=== PATIENT | female | born 1995 | race Caucasian/White ===

== ENCOUNTER 2018-01-06 20:42 | Emergency (ER) | payer OTHER, BC ==
[2018-01-06] MEDS ORDERED: GI COCKTAIL 45 ML (Maalox/Lidocaine) PO ONE (21:14)
--- NOTE | 2018-01-06 21:14 | ERPHSYRPT ---
- History of Present Illness Time Seen by Provider: 01/06/18 21:11 Historian: patient Exam Limitations: no limitations Patient Subjective Stated Complaint: stomach pains and bloating feels awful Triage Nursing Assessment: pt alert and orientedx3, , lungs sounds clear, ambulates by self, gait is steady, pusles equal bialteral radius, bowel sounds present x4, abdomen tender to palpation. skin warm dry and itnact Physician History: The patient is a 22-year-old female complaining that for the past 1-1/2 weeks she has pain in her left upper abdomen after eating spicy foods. She has some nausea but has not vomited. She denies diarrhea. She has not tried any over- the-counter medicines like Maalox. She drinks coffee several times a day. She' s had no abdominal trauma or surgeries. She takes no medicines except a control pill orally. For the past for 5 months she has not had any menstrual periods and she is sexually active. Timing/Duration: week(s) (03/27), intermittent Activities at Onset: other (eating) Quality: aching, stabbing Abdominal Pain Onset Location: LUQ Pain Radiation: no radiation Severity of Pain-Max: moderate Severity of Pain-Current: mild Modifying Factors: Improves With: eating Associated Symptoms: nausea Previous symptoms: no prior history Allergies/Adverse Reactions: No Known Drug Allergies Allergy (Verified 01/06/18 21:48) Hx Tetanus, Diphtheria Vaccination/Date Given: Yes Hx Influenza Vaccination/Date Given: No Hx Pneumococcal Vaccination/Date Given: No Immunizations Up to Date: Yes - Review of Systems Constitutional: No Fever, No Chills Eyes: No Symptoms Ears, Nose, & Throat: No Symptoms Respiratory: No Cough, No Dyspnea Cardiac: No Chest Pain, No Edema, No Syncope Abdominal/Gastrointestinal: Abdominal Pain, Nausea Genitourinary Symptoms: No Dysuria Musculoskeletal: No Back Pain, No Neck Pain Skin: No Rash Neurological: No Dizziness, No Focal Weakness, No Sensory Changes Psychological: No Symptoms Endocrine: No Symptoms Hematologic/Lymphatic: No Symptoms Immunological/Allergic: No Symptoms All Other Systems: Reviewed and Negative - Past Medical History Pertinent Past Medical History: No - Past Surgical History Past Surgical History: Yes - Social History Smoking Status: Current every day smoker Drug Use: none Patient Lives Alone: Yes - Female History Hx Now: (unknown) - Nursing Vital Signs Nursing Vital Signs: Initial Vital Signs Temperature 98.6 F 01/06/18 20:43 Pulse Rate 79 01/06/18 20:43 Respiratory Rate 18 01/06/18 20:43 Blood Pressure 123/61 01/06/18 20:43 O2 Sat by Pulse Oximetry 99 01/06/18 20:43 Pain Scale Pain Intensity 1 - Physical Exam General Appearance: no apparent distress, alert Eye Exam: PERRL/EOMI, eyes nml inspection Ears, Nose, Throat Exam: normal ENT inspection, pharynx normal, moist mucous membranes Neck Exam: normal inspection, non-tender, supple, full range of motion Respiratory Exam: normal breath sounds, lungs clear, No respiratory distress Cardiovascular Exam: regular rate/rhythm, normal heart sounds Gastrointestinal/Abdomen Exam: tenderness (LUQ) Pelvic Exam: not done Rectal Exam: not done Back Exam: normal inspection, normal range of motion, No CVA tenderness, No vertebral tenderness Extremity Exam: normal inspection, normal range of motion, pelvis stable Neurologic Exam: alert, oriented x 3, cooperative, normal mood/affect, nml cerebellar function, sensation nml, No motor deficits Skin Exam: normal color, warm, dry SpO2 Interpretation: normal SpO2: 99 Oxygen Delivery: Room Air Ordered Tests: Active Orders 24 hr Category Date Time Status CBC W DIFF Stat Lab 01/06/18 21:35 Completed CMP Stat Lab 01/06/18 21:35 Completed HCG QUALITATIVE,SERUM Stat Lab 01/06/18 21:35 Completed LIPASE Stat Lab 01/06/18 21:35 Completed UA W/RFX UR CULTURE Stat Lab 01/06/18 21:35 Completed Medication Summary Discontinued Medications Generic Name Dose Route Start Last Admin Trade Name Daydayq PRN Reason Stop Dose Admin Al Hydrox/Mg Hydrox/Simethicone Confirm 01/06/18 21:18 Maalox Es 30 Ml Unit Dose Administered 01/06/18 21:19 Dose 30 ml .ROUTE .STK-MED ONE Lidocaine HCl Confirm 01/06/18 21:18 Xylocaine Hcl Viscous * Administered 01/06/18 21:19 Dose 15 ml .ROUTE .STK-MED ONE Magnesium Hydroxide 45 ml 01/06/18 21:14 01/06/18 21:19 Gi Cocktail 45 Ml (Maalox/Lidocaine) PO 01/06/18 21:15 45 ml STAT ONE Administration Lab/Rad Data: Laboratory Result Diagrams 01/06/18 21:35 01/06/18 21:35 Laboratory Results 01/06/18 01/06/18 01/06/18 Range/Units 21:35 21:35 21:35 WBC (4.0-10.5) K/mm3 RBC (4.1-5.4) M/mm3 Hgb (12.0-16.0) gm/dl Hct (35-47) % MCV (78-100) fl MCH (26-32) pg MCHC (32-36) g/dl RDW (11.5-14.0) % Plt Count (150-450) K/mm3 MPV (6-9.5) fl Gran % (36.0-66.0) % Eos # (Auto) (0-0.5) Absolute Lymphs (auto) (1.0-4.6) Absolute Monos (auto) (0.0-1.3) Lymphocytes % (24.0-44.0) % Monocytes % (0.0-12.0) % Eosinophils % (0.00-5.0) % Basophils % (0.0-0.4) % Absolute Granulocytes (1.4-6.9) Basophils # (0-0.4) Sodium 140 (137-145) mmol/L Potassium 3.5 (3.5-5.1) mmol/L Chloride 104 (98-107) mmol/L Carbon Dioxide 29 (22-30) mmol/L Anion Gap 10.6 (5-15) MEQ/L BUN 20 H (7-17) mg/dL Creatinine 0.57 (0.52-1.04) mg/dL Estimated GFR > 60.0 ML/MIN Glucose 95 (74-106) mg/dL Calcium 9.0 (8.4-10.2) mg/dL Total Bilirubin 0.20 (0.2-1.3) mg/dL AST 22 (14-36) U/L ALT 20 (0-35) U/L Alkaline Phosphatase 63 (38-126) U/L Serum Total Protein 6.7 (6.3-8.2) g/dL Albumin 4.1 (3.5-5.0) g/dL Lipase 122 (23-300) U/L Serum , Qual NEGATIVE (Negative) Urine Color YELLOW (YELLOW) Urine Appearance CLEAR (CLEAR) Urine pH 5.0 (5-6) Ur Specific [place] 1.021 (1.005-1.025) Urine Protein NEGATIVE (Negative) Urine Ketones NEGATIVE (NEGATIVE) Urine Blood NEGATIVE (0-5) Ron/ul Urine Nitrite NEGATIVE (NEGATIVE) Urine Bilirubin NEGATIVE (NEGATIVE) Urine Urobilinogen NEGATIVE (0-1) mg/dL Ur Leukocyte Esterase NEGATIVE (NEGATIVE) Urine WBC (Auto) 3-5 (0-5) /HPF U Epithel Cells (Auto) RARE (FEW) /HPF Urine Mucus (Auto) SLIGHT (NEGATIVE) /HPF Urine Culture Reflexed NO (NO) Urine Glucose NEGATIVE (NEGATIVE) mg/dL 01/06/18 Range/Units 21:35 WBC 9.9 (4.0-10.5) K/mm3 RBC 4.31 (4.1-5.4) M/mm3 Hgb 13.5 (12.0-16.0) gm/dl Hct 38.5 (35-47) % MCV 89.3 (78-100) fl MCH 31.3 (26-32) pg MCHC 35.1 (32-36) g/dl RDW 13.1 (11.5-14.0) % Plt Count 208 (150-450) K/mm3 MPV 10.5 H (6-9.5) fl Gran % 53.9 (36.0-66.0) % Eos # (Auto) 0.26 (0-0.5) Absolute Lymphs (auto) 3.62 (1.0-4.6) Absolute Monos (auto) 0.66 (0.0-1.3) Lymphocytes % 36.5 (24.0-44.0) % Monocytes % 6.7 (0.0-12.0) % Eosinophils % 2.6 (0.00-5.0) % Basophils % 0.3 (0.0-0.4) % Absolute Granulocytes 5.34 (1.4-6.9) Basophils # 0.03 (0-0.4) Sodium (137-145) mmol/L Potassium (3.5-5.1) mmol/L Chloride (98-107) mmol/L Carbon Dioxide (22-30) mmol/L Anion Gap (5-15) MEQ/L BUN (7-17) mg/dL Creatinine (0.52-1.04) mg/dL Estimated GFR ML/MIN Glucose (74-106) mg/dL Calcium (8.4-10.2) mg/dL Total Bilirubin (0.2-1.3) mg/dL AST (14-36) U/L ALT (0-35) U/L Alkaline Phosphatase (38-126) U/L Serum Total Protein (6.3-8.2) g/dL Albumin (3.5-5.0) g/dL Lipase (23-300) U/L Serum , Qual (Negative) Urine Color (YELLOW) Urine Appearance (CLEAR) Urine pH (5-6) Ur Specific [place] (1.005-1.025) Urine Protein (Negative) Urine Ketones (NEGATIVE) Urine Blood (0-5) Ron/ul Urine Nitrite (NEGATIVE) Urine Bilirubin (NEGATIVE) Urine Urobilinogen (0-1) mg/dL Ur Leukocyte Esterase (NEGATIVE) Urine WBC (Auto) (0-5) /HPF U Epithel Cells (Auto) (FEW) /HPF Urine Mucus (Auto) (NEGATIVE) /HPF Urine Culture Reflexed (NO) Urine Glucose (NEGATIVE) mg/dL - Progress Progress: improved Progress Note: 01/06/18 22:14 Pt improved with GI Cocktail. Counseled pt/family regarding: lab results, diagnosis, need for follow-up - Departure Time of Disposition: 22:15 (the area) Departure Disposition: Home Clinical Impression: Gastritis Condition: Stable Critical Care Time: No Referrals: OLIVIA MILLAN MD [Primary Care Provider] - Additional Instructions: You have gastritis. You were given a GI cocktail in the ER. You may take Maalox as often as needed. Also take omeprazole 20 mg daily. Avoid coffee and spicy foods until healed. Follow-up with your primary medical doctor next week. Prescriptions: Omeprazole 20 mg PO DAILY #14 capsule.
[2018-01-06] MEDS ORDERED: MAALOX ES 30 ML UNIT DOSE ONE (21:18)
[2018-01-06] MEDS ORDERED: XYLOCAINE HCl Viscous ONE (21:18)
[2018-01-06 21:41] LABS: BASOPHIL % 0.3 % (0.0-0.4); Basophil (Absolute #) 0.03 (0-0.4); Eosinophil % 2.6 % (0.00-5.0); Eosinophil (Absolute #) 0.26 (0-0.5); Granulocyte Absolute (ANC) 5.34 (1.4-6.9); Granulocytes % 53.9 % (36.0-66.0); Hematocrit 38.5 % (35-47); Hemoglobin 13.5 gm/dl (12.0-16.0); Lymphocyte (Absolute #) 3.62 (1.0-4.6); Lymphocytes % 36.5 % (24.0-44.0); Mean Cell Volume 89.3 fl (78-100); Mean Corpuscular Hemoglobin 31.3 pg (26-32); Mean Corpuscular Hgb Concent. 35.1 g/dl (32-36); Mean Platelet Volume 10.5 fl (6-9.5); Monocyte (Absolute #) 0.66 (0.0-1.3); Monocytes % 6.7 % (0.0-12.0); Platelet Count 208 K/mm3 (150-450); Red Blood Count 4.31 M/mm3 (4.1-5.4); Red Cell Distribution Width 13.1 % (11.5-14.0); White Blood Count 9.9 K/mm3 (4.0-10.5)
[2018-01-06 21:49] VITALS: BP 100/50
[2018-01-06 21:52] VITALS: PULSE 86
[2018-01-06 21:53] LABS: Appearance CLEAR (CLEAR); Bilirubin NEGATIVE (NEGATIVE); Blood NEGATIVE Ery/ul (0-5); Glucose NEGATIVE (NEGATIVE); Ketones NEGATIVE (NEGATIVE); Leukocyte Esterase NEGATIVE (NEGATIVE); Nitrite NEGATIVE (NEGATIVE); Protein,Urine Dip NEGATIVE (Negative); Specific Gravity 1.021 (1.005-1.025); Urobilinogen NEGATIVE mg/dL (0-1)
[2018-01-06 21:55] LABS: ALBUMIN 4.1 g/dL (3.5-5.0); ALKALINE PHOSPHATASE 63 U/L (38-126); ANION GAP 10.6 MEQ/L (5-15); BLOOD UREA NITROGEN 20 mg/dL (7-17); CHLORIDE 104 mmol/L (98-107); Carbon Dioxide 29 mmol/L (22-30); Creatinine 1 0.57 mg/dL (0.52-1.04); Glucose 95 mg/dL (74-106); LIPASE 122 U/L (23-300); Potassium 3.5 mmol/L (3.5-5.1); SGOT/AST 22 U/L (14-36); SGPT/ALT 20 U/L (0-35); SODIUM 140 mmol/L (137-145); Total Protein 6.7 g/dL (6.3-8.2)
[2018-01-06 22:18] VITALS: O2SAT 99
== END 2018-01-06 22:35 | disposition home or self-care (01) ==
LOC: ED 20:42
DX: K29.70 Gastritis, unspecified, without bleeding (principal); R10.12 Left upper quadrant pain; R11.0 Nausea
CPT/HCPCS: 36415; 80053; 81001; 83690; 84703; 85025; 96372; 99283; A9270-GY

== ENCOUNTER 2020-10-29 13:32 | Observation (INO) | payer OTHER ==
[2020-10-29 14:02] VITALS: BP 113/69; PULSE 95
== END 2020-10-29 14:20 | disposition home or self-care (01) ==
LOC: OB 13:32
PROVIDERS: ADMIT Family Medicine; ATTEND Family Medicine
DX: Z34.83 Encounter for supervision of other normal pregnancy, third trimester (principal); Z3A.39 39 weeks gestation of pregnancy
CPT/HCPCS: G0378

== ENCOUNTER 2020-11-02 10:14 | Inpatient (IN) | payer OTHER ==
[2020-11-02] MEDS ORDERED: Ephedrine Sulfate 50 MG/ML IV PRN (20:00)
[2020-11-02] MEDS ORDERED: Zofran 4 MG/2 ML VIAL IV PRN (20:00)
[2020-11-02] MEDS ORDERED: Lactated Ringers 1,000 ML IV SCH (20:00)
[2020-11-02] MEDS ORDERED: XYLOCAINE 1% HCL 20 ML MDV IJ PRN (20:00)
[2020-11-02] MEDS ORDERED: PITOCIN 30 UNITS/ LR 500 ML 30 UNITS/500 ML IV.SOLN. IV SCH (20:00)
[2020-11-02] MEDS ORDERED: BRETHINE 1 MG/ML SQ PRN (20:00)
[2020-11-02] MEDS ORDERED: Lactated Ringers 1,000 ML IV ONE (20:00)
[2020-11-02] MEDS ORDERED: OB EPIDURAL NAROPIN/SUFENTANIL IN NACL EPIDURAL PRN (20:00)
[2020-11-02 22:13] LABS: Hematocrit 36.8 % (35-47); Hemoglobin 12.5 gm/dl (12.0-16.0); Mean Cell Volume 91.8 fl (78-100); Mean Corpuscular Hemoglobin 31.2 pg (26-32); Platelet Count 125 K/mm3 (150-450); Red Blood Count 4.01 M/mm3 (4.1-5.4); Red Cell Distribution Width 13.4 % (11.5-14.0); White Blood Count 13.7 K/mm3 (4.0-10.5)
[2020-11-02 22:29] LABS: Amphetamine,Urine NEGATIVE (NEGATIVE); Barbiturate,Urine NEGATIVE (NEGATIVE); Benzodiazepine,Urine NEGATIVE (NEGATIVE); Cocaine,Urine NEGATIVE (NEGATIVE); Methadone,Urine NEGATIVE (NEGATIVE); Opiate,Urine NEGATIVE (NEGATIVE); PCP,Urine NEGATIVE (NEGATIVE); THC,Urine NEGATIVE (NEGATIVE)
[2020-11-02 22:58] LABS: ABO TYPING O; Antibody Screen NEGATIVE (NEGATIVE); RH TYPING POSITIVE
[2020-11-02 23:03] LABS: ATYPICAL LYMPHS 2 %; BAND 1 % (0.0-2.0); Lymphocytes 12 % (24-44); Monocyte 2 % (0.0-12.0); Neutrophils 83 % (36.0-66.0); Platelet Estimate NORMAL (NORMAL); Total Cells Counted 100
[2020-11-03] MEDS ORDERED: CORTISONE 1% CREAM TP PRN (05:30)
[2020-11-03] MEDS ORDERED: Dulcolax 10 MG SUPP PR PRN (05:30)
[2020-11-03] MEDS ORDERED: Dermoplast Spray TP PRN (05:30)
[2020-11-03] MEDS ORDERED: Anucort-HC SUPPOSITORY PR PRN (05:30)
[2020-11-03] MEDS ORDERED: Mylicon 80MG PO PRN (05:30)
[2020-11-03] MEDS ORDERED: NORCO 5/325 MG PO PRN (05:30)
[2020-11-03] MEDS ORDERED: TUCKS TP PRN (05:30)
[2020-11-03] MEDS ORDERED: LANSINOH 40 GM TOP PRN (05:30)
[2020-11-03] MEDS ORDERED: Ambien 10 MG PO PRN (05:30)
[2020-11-03] MEDS ORDERED: Adacel Vial IM ONE (09:00)
[2020-11-03] MEDS: TYLENOL EXTRA STRENGTH 500 MG PO PRN ×2 (11:16→23:03)
[2020-11-03] MEDS: Colace 100 MG PO SCH ×2 (11:17→22:30)
[2020-11-03] MEDS: FERREX 150 PO SCH (11:17)
[2020-11-03 15:52] LABS: Hematocrit 37.1 % (35-47); Hemoglobin 12.4 gm/dl (12.0-16.0); Mean Cell Volume 91.2 fl (78-100); Mean Corpuscular Hemoglobin 30.5 pg (26-32); Mean Corpuscular Hgb Concent. 33.4 g/dl (32-36); Mean Platelet Volume 12.6 fl (7.5-11.0); Platelet Count 117 K/mm3 (150-450); Red Blood Count 4.07 M/mm3 (4.1-5.4); Red Cell Distribution Width 13.5 % (11.5-14.0); White Blood Count 19.5 K/mm3 (4.0-10.5)
[2020-11-03 17:36] LABS: ATYPICAL LYMPHS 1 %; BAND 4 % (0.0-2.0); Lymphocytes 7 % (24-44); Monocyte 6 % (0.0-12.0); Neutrophils 82 % (36.0-66.0); Total Cells Counted 100
[2020-11-03 17:37] LABS: Dohle Bodies 1+; Platelet Estimate NORMAL (NORMAL)
[2020-11-03] MEDS: MOTRIN 400 MG PO PRN (18:03)
[2020-11-04 05:10] LABS: Hematocrit 36.9 % (35-47); Hemoglobin 12.2 gm/dl (12.0-16.0); Mean Cell Volume 92.9 fl (78-100); Mean Corpuscular Hemoglobin 30.7 pg (26-32); Mean Corpuscular Hgb Concent. 33.1 g/dl (32-36); Mean Platelet Volume 13.4 fl (7.5-11.0); Platelet Count 116 K/mm3 (150-450); Red Blood Count 3.97 M/mm3 (4.1-5.4); Red Cell Distribution Width 13.8 % (11.5-14.0); White Blood Count 18.8 K/mm3 (4.0-10.5)
[2020-11-04 05:27] LABS: BILIRUBIN,TOTAL < 0.10 mg/dL (0.2-1.3); BLOOD UREA NITROGEN 6 mg/dL (7-17); CHLORIDE 104 mmol/L (98-107); Calcium 8.7 mg/dL (8.4-10.2); Carbon Dioxide 26 mmol/L (22-30); Potassium 4.1 mmol/L (3.5-5.1); SGPT/ALT 16 U/L (0-35); Total Protein 5.6 g/dL (6.3-8.2)
[2020-11-04] MEDS: MOTRIN 400 MG PO PRN ×2 (05:32→16:52)
[2020-11-04 05:58] LABS: ALBUMIN 2.8 g/dL (3.5-5.0); ALKALINE PHOSPHATASE 133 U/L (38-126); ANION GAP 8.5 MEQ/L (5-15); Creatinine 1 0.53 mg/dL (0.52-1.04); EST GLOMERULAR FILTRATION RATE > 60.0 ML/MIN; Glucose 85 mg/dL (74-106); SGOT/AST 53 U/L (14-36); SODIUM 134 mmol/L (137-145)
[2020-11-04 07:33] LABS: ANISOCYTOSIS 1+; BAND 1 % (0.0-2.0); Lymphocytes 17 % (24-44); Monocyte 4 % (0.0-12.0); Neutrophils 78 % (36.0-66.0); Platelet Estimate NORMAL (NORMAL); Total Cells Counted 100; Toxic Granulation 1+
[2020-11-04] MEDS: Colace 100 MG PO SCH ×2 (10:28→22:00)
[2020-11-04] MEDS: FERREX 150 PO SCH (10:28)
[2020-11-04] MEDS: TYLENOL EXTRA STRENGTH 500 MG PO PRN ×2 (10:28→21:59)
[2020-11-04 23:16] VITALS: BP 122/65; PULSE 91; O2SAT 96
== END 2020-11-04 22:20 | disposition home or self-care (01) | DRG 807 ==
LOC: OB 19:46 → OBSVTOIN 11-03 00:01
PROVIDERS: ADMIT Family Medicine; ATTEND Family Medicine
PROC: 10E0XZZ Delivery of Products of Conception, External Approach (ICD-10-PCS; principal; 2020-11-03)
PROC: 0KQM0ZZ Repair Perineum Muscle, Open Approach (ICD-10-PCS; 2020-11-03)
DX: O70.1 Second degree perineal laceration during delivery (principal); Z37.0 Single live birth; Z3A.39 39 weeks gestation of pregnancy
CPT/HCPCS: 36415; 80053; 80307; 85025; 86850; 86900; 86901; G0378; J2590; J2795; A9270-GY

== ENCOUNTER 2022-02-14 07:23 | Inpatient (IN) | payer OTHER ==
[2022-02-14] MEDS ORDERED: XYLOCAINE 1% HCL 20 ML MDV IJ PRN (15:16)
[2022-02-14] MEDS ORDERED: Ephedrine Sulfate 50 MG/ML IV PRN (15:16)
[2022-02-14] MEDS ORDERED: STADOL 2 MG IV PRN ×2 (15:16→20:35)
[2022-02-14] MEDS ORDERED: Zofran 4 MG/2 ML VIAL IV PRN (15:16)
[2022-02-14] MEDS ORDERED: Nubain 10 MG/ML IV PRN (15:16)
[2022-02-14] MEDS ORDERED: FENTANYL 2 MCG-BUPIV 0.125%-NS 250 ML Epidur 250 ML EPIDURAL SCH (15:30)
[2022-02-14 20:08] LABS: Absolute Neutrophil Ct (ANC) 12.74 x10^3/uL (1.4-6.9); Basophil (Absolute #) 0.12 x10^3/uL (0-0.4); Eosinophil % 0.7 % (0.00-5.0); Eosinophil (Absolute #) 0.13 x10^3/uL (0-0.5); Hematocrit 38.7 % (35-47); Hemoglobin 13.5 g/dL (12.0-16.0); Lymphocytes % 17.6 % (24.0-44.0); Mean Cell Volume 93.3 fL (78-100); Mean Corpuscular Hemoglobin 32.5 pg (26-32); Mean Corpuscular Hgb Concent. 34.9 g/dL (32-36); Mean Platelet Volume 11.8 fL (7.5-11.0); Monocyte (Absolute #) 1.14 x10^3/uL (0.0-1.3); Monocytes % 6.5 % (0.0-12.0); Neutrophil % 72.1 % (36.0-66.0); Platelet Count 164 x10^3/uL (150-450); Red Blood Count 4.15 x10^6/uL (4.1-5.4); Red Cell Distribution Width 13.6 % (11.5-14.0); White Blood Count 17.7 x10^3/uL (4.0-10.5)
[2022-02-14 21:51] LABS: ABO TYPING O; Antibody Screen NEGATIVE (NEGATIVE); RH TYPING POSITIVE
[2022-02-14 21:54] LABS: Amphetamine,Urine NEGATIVE (NEGATIVE); Benzodiazepine,Urine NEGATIVE (NEGATIVE); Cocaine,Urine NEGATIVE (NEGATIVE); Methadone,Urine NEGATIVE (NEGATIVE); Opiate,Urine NEGATIVE (NEGATIVE); PCP,Urine NEGATIVE (NEGATIVE); THC,Urine NEGATIVE (NEGATIVE)
[2022-02-14 21:58] LABS: Barbiturate,Urine NEGATIVE (NEGATIVE)
[2022-02-14] MEDS: CYTOTEC PO SCH (22:05)
[2022-02-14] MEDS: Lactated Ringers 1,000 ML IV SCH (22:06)
[2022-02-14] MEDS ORDERED: Ambien 5 MG Tablet ONE (23:40)
[2022-02-14] MEDS: Ambien 5 MG Tablet PO ONE ×2 (23:41→23:42)
[2022-02-15] MEDS: Lactated Ringers 1,000 ML IV SCH ×4 (03:40→11:27)
[2022-02-15] MEDS ORDERED: PITOCIN 30 UNITS/ LR 500 ML 30 UNITS/500 ML PLAST..BAG IV SCH (04:00)
[2022-02-15] MEDS ORDERED: BRETHINE 1 MG/ML SQ PRN (04:00)
[2022-02-15] MEDS: Lactated Ringers 1,000 ML IV ONE (04:46)
[2022-02-15] MEDS: TYLENOL EXTRA STRENGTH 500 MG PO PRN (06:57)
[2022-02-15] MEDS ORDERED: Sodium Chloride 0.9% 1000 ML 1,000 ML ONE (10:14)
[2022-02-15] MEDS ORDERED: Sodium Chloride 0.9% 1000 ML 1,000 ML IV STA (10:59)
[2022-02-15] MEDS ORDERED: Dermoplast Spray TP PRN (15:14)
[2022-02-15] MEDS ORDERED: TUCKS TP PRN (15:14)
[2022-02-15] MEDS ORDERED: LANSINOH 40 GM TOP PRN (15:14)
--- NOTE | 2022-02-15 16:55 | PCM.HP ---
History of Present Illness - Chief Complaint History of Present Illness: is a 26 year old female. 26 yo iup 39 wks gestation admitted for induction and denies complaints. Medications & Allergies Home Medications: Home Medication List Vit No.179/Iron/Folic [ Tablet] 1 each PO DAILY 02/14/22 [History Confirmed 02/14/22] Allergies/Adverse Reactions: Allergies Allergy/AdvReac Type Severity Reaction Status Date / Time No Known Drug Allergies Allergy Verified 02/14/22 20:08 - Past Medical History Past Medical History: No Comment: PT DENIES ANY PAST MEDICAL HX - Female History Expected Date of Delivery: 02/15/22 - Past Surgical History Past Surgical History: Yes - Social History Smoking Status: Current every day smoker How long have you smoked: 10 YEARS Exposure to second hand smoke: Yes Alcohol: None Drug Use: none - Physical Exam Vital Signs: Vital Signs - 24 hr Temp Pulse Resp BP BP Pulse Ox 02/15/22 14:05 78 18 92/50 95 02/15/22 13:50 98.1 F 83 16 91/50 96 02/15/22 13:15 78 18 92/55 95 02/15/22 11:00 97.2 F 75 20 97/54 95 02/15/22 10:45 97.2 F 75 20 93/55 97 02/15/22 10:30 97.2 F 73 20 91/53 96 02/15/22 10:15 97.2 F 87 20 93/54 96 02/15/22 10:00 97.2 F 73 20 94/53 96 02/15/22 09:45 97.2 F 77 20 89/53 96 02/15/22 09:15 56 L 20 101/56 97 02/15/22 09:00 56 L 20 95/56 97 02/15/22 08:45 82 20 95/56 97 02/15/22 08:30 93 H 20 100/52 100 02/15/22 08:15 93 H 20 125/70 100 02/15/22 08:00 98.4 F 83 20 101/61 97 02/15/22 07:45 77 20 100 02/15/22 07:30 97.2 F 20 100 02/15/22 07:15 98.1 F 78 20 103/60 94 L 02/15/22 07:00 78 20 103/60 94 L 11/23/22 06:45 71 20 108/60 95 02/15/22 06:30 71 20 103/58 96 02/15/22 06:15 76 18 102/55 95 02/15/22 06:00 76 18 107/56 96 02/15/22 05:45 98.1 F 85 18 100/62 95 02/15/22 05:30 98.1 F 100 H 20 100/60 95 02/15/22 05:27 81 20 87/54 93 L 02/15/22 05:15 81 20 87/54 93 L 02/15/22 05:00 74 20 89/55 94 L 02/15/22 04:45 85 20 91/50 95 02/15/22 04:30 79 20 91/50 95 02/15/22 04:15 98.2 F 80 20 100/57 100/57 92 L 02/15/22 03:00 98 F 88 20 107/58 95 02/15/22 02:00 98.1 F 93 H 18 109/63 97 02/15/22 01:00 91 H 17 121/58 97 02/15/22 00:00 98 F 88 20 94 L 02/14/22 23:00 90 20 106/62 02/14/22 21:56 83 20 106/62 94 L 02/14/22 21:00 97.9 F 91 H 17 109/67 97 02/14/22 20:00 99 F 91 H 17 117/67 96 General Appearance: no apparent distress Pelvic Exam: other (/-2) Results - Labs Lab/Micro Results: Lab Results-Last 24 Hours 02/14/22 02/14/22 02/14/22 Range/Units 19:15 19:55 19:55 WBC 17.7 H (4.0-10.5) x10^3/uL RBC 4.15 (4.1-5.4) x10^6/uL Hgb 13.5 (12.0-16.0) g/dL Hct 38.7 (35-47) % MCV 93.3 (78-100) fL MCH 32.5 H (26-32) pg MCHC 34.9 (32-36) g/dL RDW 13.6 (11.5-14.0) % Plt Count 164 (150-450) x10^3/uL MPV 11.8 H (7.5-11.0) fL Gran % 72.1 H (36.0-66.0) % Immature Gran % (Auto) 2.4 H (0.00-0.4) % Nucleat RBC Rel Count 0.0 (0.00-0.1) % Eos # (Auto) 0.13 (0-0.5) x10^3/uL Immature Gran # (Auto) 0.42 H (0.00-0.03) x10^3u/L Absolute Lymphs (auto) 3.10 (1.0-4.6) x10^3/uL Absolute Monos (auto) 1.14 (0.0-1.3) x10^3/uL Absolute Nucleated RBC 0.00 (0.00-0.01) x10^3u/L Lymphocytes % 17.6 L (24.0-44.0) % Monocytes % 6.5 (0.0-12.0) % Eosinophils % 0.7 (0.00-5.0) % Basophils % 0.7 (0.0-0.4) % Absolute Granulocytes 12.74 H (1.4-6.9) x10^3/uL Basophils # 0.12 (0-0.4) x10^3/uL Urine Opiates Level NEGATIVE (NEGATIVE) Ur Methadone NEGATIVE (NEGATIVE) Urine Barbiturates NEGATIVE (NEGATIVE) Ur Phencyclidine (PCP) NEGATIVE (NEGATIVE) Urine Amphetamine NEGATIVE (NEGATIVE) U Benzodiazepine Level NEGATIVE (NEGATIVE) Urine Cocaine NEGATIVE (NEGATIVE) Urine Marijuana (THC) NEGATIVE (NEGATIVE) ABO Group O Rh Factor POSITIVE Antibody Screen NEGATIVE (NEGATIVE)
--- NOTE | 2022-02-15 16:57 | PCM.DS ---
Discharge Summary Date of Admission: 02/15/22 07:23 Admitting Physician: VERNON DUNHAM DO Consults: Consults on Case 02/14/22 15:18 Notify Anesthesia Provider PRN 02/15/22 15:14 Notify Physician ROUTINE Primary Care Provider: VERNON DUNHAM DO Allergies Allergies No Known Drug Allergies Allergy (Verified 02/14/22 20:08) Hospital Summary - Hospital Course Hospital Course: pt admitted on feb 14 for induction at 39 wks gestation and was started on pitocin on feb 15 and subsequently delivered live baby boy without complication on feb 15 with nuchal cord x 1. pt had no complications after delivery and at this time pt stable for discharge on feb 16. all questions answered to her satisfaction and was advised to fu in office in 3 wks. pt with stable hgb; - Vitals & Intake/Output Vital Signs: Vital Signs Temperature 98.1 F 02/15/22 13:50 Pulse Rate 78 02/15/22 14:05 Respiratory Rate 18 02/15/22 14:05 Blood Pressure 92/50 02/15/22 14:05 O2 Sat by Pulse Oximetry 95 02/15/22 14:05 Intake & Output: Intake & Output 02/13/22 02/14/22 02/15/22 02/16/22 11:59 11:59 11:59 11:59 Intake Total 7250 Output Total 600 Balance 6650 Weight 60.328 kg - Lab Result Diagrams: 02/14/22 19:55 Lab Results-Last 24 Hrs: Lab Results-Last 24 Hours 02/14/22 02/14/22 02/14/22 Range/Units 19:15 19:55 19:55 WBC 17.7 H (4.0-10.5) x10^3/uL RBC 4.15 (4.1-5.4) x10^6/uL Hgb 13.5 (12.0-16.0) g/dL Hct 38.7 (35-47) % MCV 93.3 (78-100) fL MCH 32.5 H (26-32) pg MCHC 34.9 (32-36) g/dL RDW 13.6 (11.5-14.0) % Plt Count 164 (150-450) x10^3/uL MPV 11.8 H (7.5-11.0) fL Gran % 72.1 H (36.0-66.0) % Immature Gran % (Auto) 2.4 H (0.00-0.4) % Nucleat RBC Rel Count 0.0 (0.00-0.1) % Eos # (Auto) 0.13 (0-0.5) x10^3/uL Immature Gran # (Auto) 0.42 H (0.00-0.03) x10^3u/L Absolute Lymphs (auto) 3.10 (1.0-4.6) x10^3/uL Absolute Monos (auto) 1.14 (0.0-1.3) x10^3/uL Absolute Nucleated RBC 0.00 (0.00-0.01) x10^3u/L Lymphocytes % 17.6 L (24.0-44.0) % Monocytes % 6.5 (0.0-12.0) % Eosinophils % 0.7 (0.00-5.0) % Basophils % 0.7 (0.0-0.4) % Absolute Granulocytes 12.74 H (1.4-6.9) x10^3/uL Basophils # 0.12 (0-0.4) x10^3/uL Urine Opiates Level NEGATIVE (NEGATIVE) Ur Methadone NEGATIVE (NEGATIVE) Urine Barbiturates NEGATIVE (NEGATIVE) Ur Phencyclidine (PCP) NEGATIVE (NEGATIVE) Urine Amphetamine NEGATIVE (NEGATIVE) U Benzodiazepine Level NEGATIVE (NEGATIVE) Urine Cocaine NEGATIVE (NEGATIVE) Urine Marijuana (THC) NEGATIVE (NEGATIVE) ABO Group O Rh Factor POSITIVE Antibody Screen NEGATIVE (NEGATIVE) - Procedures and Test Procedures and Tests throughout Hospitalization: Therapy Orders & Screens 02/14/22 21:00 Smoking Cessation Education ONCE Comment: Smoking Status: Current every day smoker How long have you smoked: 10 YEARS Have you smoked in the past 12 months: Yes Approximately how many cigarettes per day: 8 Do you dip or chew tobacco: No Final Diagnosis/Problem List - Final Discharge Diagnosis/Problem (1) Vaginal delivery Current Visit: Yes Status: Acute Code(s): O80 - ENCOUNTER FOR FULL-TERM UNCOMPLICATED DELIVERY - Discharge Disposition: Home, Self-Care Condition: Stable Prescriptions: No Action Vit No.179/Iron/Folic [ Tablet] 1 each PO DAILY Follow up with: VERNON DUNHAM DO [Primary Care Provider] - 3 weeks
[2022-02-15] MEDS ORDERED: Adacel Vial IM ONE (18:00)
[2022-02-15] MEDS: MOTRIN 400 MG PO PRN (19:12)
[2022-02-16] MEDS: PITOCIN 30 UNITS/ LR 500 ML 30 UNITS/500 ML PLAST..BAG IV SCH (00:31)
[2022-02-16] MEDS: Lactated Ringers 1,000 ML IV ONE (00:31)
[2022-02-16] MEDS: Docusate Sodium 100 MG PO SCH ×2 (00:38→08:46)
[2022-02-16] MEDS: TYLENOL EXTRA STRENGTH 500 MG PO PRN (01:25)
[2022-02-16] MEDS: MOTRIN 400 MG PO PRN ×2 (03:07→08:46)
[2022-02-16 05:53] LABS: Absolute Neutrophil Ct (ANC) 14.01 x10^3/uL (1.4-6.9); Basophil (Absolute #) 0.09 x10^3/uL (0-0.4); Eosinophil % 0.6 % (0.00-5.0); Eosinophil (Absolute #) 0.11 x10^3/uL (0-0.5); Hematocrit 37.3 % (35-47); Hemoglobin 12.6 g/dL (12.0-16.0); Mean Cell Volume 96.1 fL (78-100); Mean Corpuscular Hemoglobin 32.5 pg (26-32); Mean Corpuscular Hgb Concent. 33.8 g/dL (32-36); Mean Platelet Volume 12.1 fL (7.5-11.0); Monocyte (Absolute #) 1.36 x10^3/uL (0.0-1.3); Monocytes % 7.3 % (0.0-12.0); Neutrophil % 74.8 % (36.0-66.0); Platelet Count 129 x10^3/uL (150-450); Red Blood Count 3.88 x10^6/uL (4.1-5.4); Red Cell Distribution Width 13.7 % (11.5-14.0); White Blood Count 18.7 x10^3/uL (4.0-10.5)
[2022-02-16] MEDS ORDERED: FERREX 150 PO SCH (10:00)
[2022-02-16 15:39] VITALS: BP 101/55; PULSE 93; O2SAT 96
[2022-02-17 12:04] LABS: HBsAg Screen Negative (Negative)
== END 2022-02-16 15:05 | disposition home or self-care (01) | DRG 807 ==
LOC: OB 07:23 → OBSVTOIN 02-15 07:23
PROVIDERS: ADMIT Obstetrics & Gynecology; ATTEND Obstetrics & Gynecology
PROC: 10E0XZZ Delivery of Products of Conception, External Approach (ICD-10-PCS; principal; 2022-02-15)
DX: O69.81X0 Labor and delivery complicated by cord around neck, without compression, not applicable or unspecified (principal); Z37.0 Single live birth; Z3A.39 39 weeks gestation of pregnancy; Z20.828 Contact with and (suspected) exposure to other viral communicable diseases
CPT/HCPCS: 36415; 59400; 80307; 85025; 86850; 86900; 86901; 87086; 87340; 90471; 90715; G0378; J2590; A9270-GY